=== PATIENT | male | born 1965 | race African-American/Black ===

== ENCOUNTER 2017-01-12 15:32 | Emergency (ER) ==
[2017-01-12 15:37] VITALS: BP 136/77; TEMP 100.9; BMI 21.9
[2017-01-12] MEDS ORDERED: DECADRON 4 MG/ML SDV IM STA (15:47)
--- NOTE | 2017-01-12 15:53 | ED.PDOC ---
General ED Provider: Dr. ADELAIDA CONNOR Chief Complaint: Fever Stated Complaint: Started from the friday, coughing, fever. hurting all over Time Seen by Physician: 15:51 Mode of Arrival: Walk-In Information Source: Patient Nursing and Triage Documentation Reviewed and Agree: Yes Miscellaneous Complaint Exam - Febrile Illness/Adult Complaint/Exam Symptoms Are: Still present Timing: Constant Episodes Lasting: Days Initial Severity: Moderate Current Severity: Moderate Aggravating: Reports: None Alleviating: Reports: None Associated Signs and Symptoms: Reports: Cough, Myalgia. Denies: Headache, Fluid intake, Short of air, Sore throat, Nausea, Vomiting, Chills, Diaphoresis, Dysuria, Arthralgia, Stiff neck, Rash, Altered mental status Pseudomonas Risk Factors: Reports: None Serious Bacterial Infection Risk Factors: Reports: None Current Antibiotic Use: No Related Surgical History: None Differential Diagnoses: Viremia, Other (pneumonia) Review of Systems - Review Of Systems Constitutional: Reports: Malaise, Weakness Eyes: Reports: No symptoms Ears, Nose, Mouth, Throat: Reports: No symptoms Respiratory: Reports: Cough Cardiac: Reports: No symptoms GI: Reports: No symptoms : Reports: No symptoms Musculoskeletal: Reports: No symptoms Skin: Reports: No symptoms Neurological: Reports: No symptoms Endocrine: Reports: No symptoms Hematologic/Lymphatic: Reports: No symptoms All Other Systems: Reviewed and Negative Past Medical History - Past Medical History Previously Healthy: Yes Endocrine: Reports: None Cardiovascular: Reports: None Respiratory: Reports: None Hematological: Reports: None Gastrointestinal: Reports: None Genitourinary: Reports: None Neuro/Psych: Reports: None Musculoskeletal: Reports: None Cancer: Reports: None - Surgical History General Surgical History: Reports: None - Family History Family History: Reports: None - Social History Smoking Status: Current every day smoker, Light tobacco smoker Smoking Cessation Counseling Time: > 3 min - 10 min Hx Substance Use: No Alcohol Screening: Occasionally - Immunizations Tetanus Shot up to Date: No (unknown) Physical Exam - Physical Exam Appearance: Well-appearing, No pain distress, Well-nourished Eyes: ANTONIO, EOMI, Conjunctiva clear ENT: Ears normal, Nose normal, Oropharynx normal Respiratory: Airway patent, Breath sounds clear, Breath sounds equal, Respirations nonlabored Cardiovascular: RRR, Pulses normal, No rub, No murmur GI/: Soft, Nontender, No masses, Bowel sounds normal, No Organomegaly Musculoskeletal: Normal strength, ROM intact, No edema, No calf tenderness Skin: Warm, Dry, Normal color Neurological: Sensation intact, Motor intact, Reflexes intact, Cranial nerves intact, Alert, Oriented Psychiatric: Affect appropriate, Mood appropriate Interpretation - Radiology Interpretation Radiology Interpretation By: ED Physician Radiology Results: Negative Exam Interpreted: CXR Critical Care Note - Critical Care Note Total Time (mins): 0 Course - Course Orders, Labs, Meds: Lab Review 01/12/17 15:40 Influenza A (Rapid) Negative Influenza B (Rapid) Negative Orders Category Date Time Status RAPID FLU A/B Stat LAB 01/12/17 15:40 Completed Dexamethasone 4 mg/ml Inj [Decadron 4 mg/ml Sdv] MEDS 01/12/17 15:47 Discontinued 4 mg IM ONCE STA CHEST, 2 VIEWS PA & LAT Stat RADS 01/12/17 15:47 Taken Medications Discontinued Medications Generic Name Dose Route Start Last Admin Trade Name Freq PRN Reason Stop Dose Admin Dexamethasone Sodium Phosphate 4 mg 01/12/17 15:47 01/12/17 15:57 Decadron 4 Mg/Ml Sdv IM 01/12/17 15:48 4 mg ONCE STA Administration Vital Signs: Temp Pulse Resp BP Pulse Ox 01/12/17 15:32 100.9 F H 92 H 16 136/77 93 L Departure - Departure Time of Disposition: 16:09 Disposition: HOME SELF-CARE Discharge Problem: URTI (acute upper respiratory infection) Instructions: Acute Bronchitis (ED) Condition: Stable Pt referred to PMD for follow-up: Yes Additional Instructions: Increase hydration Tylenol prn Prescriptions: Cephalexin [Keflex] 500 mg PO Q12HR #20 capsule Codeine/Promethazine Syrup [Phenergan with Codeine 6.25/10 mg/5 ml] 5 ml PO Q8H #1 bottle Prednisone 10 mg PO BIDWM #14 tablet Allergies/Adverse Reactions: Allergies succinylcholine [From Anectine] Adverse Reaction (Verified 01/12/17 15:36) Home Medications: Ambulatory Orders Loratadine [Claritin] 10 mg PO DAILY 04/23/16 Ibuprofen 800 mg PO TID #30 tablet 07/17/16 Cephalexin [Keflex] 500 mg PO Q12HR #20 capsule 01/12/17 Codeine/Promethazine Syrup [Phenergan with Codeine 6.25/10 mg/5 ml] 5 ml PO Q8H #1 bottle 01/12/17 Prednisone 10 mg PO BIDWM #14 tablet 01/12/17 Disposition Discussed With: Patient, Family
[2017-01-12 16:02] LABS: FLU INTERNAL QC INTERNAL QC VALID; RAPID FLU A NEGATIVE (NEGATIVE); RAPID FLU B NEGATIVE (NEGATIVE)
--- NOTE | 2017-01-12 19:49 | DI ---
Examination: Two radiographic images of the chest. Comparison: None available. Reason for study: Coughing. FINDINGS: No pneumothorax, pleural effusion, or focal consolidation. The cardiac silhouette is not enlarged. Impression: No acute cardiopulmonary process.
== END 2017-01-12 16:15 | disposition home or self-care (01) ==
LOC: ED 15:32
DX: J06.9 Acute upper respiratory infection, unspecified (principal); F17.210 Nicotine dependence, cigarettes, uncomplicated
CPT/HCPCS: 87804; 96372; 99283